=== PATIENT | female | born 1945 | race Caucasian/White ===

== ENCOUNTER 2020-04-30 23:58 | Emergency (ER) | payer MEDICARE, OTHER ==
[~2020-04-30] VITALS: Ht 152.4 cm; Wt 65.5 kg
[~2020-04-30 23:58] MED LIST: ASPI-1071 PO; BICTOZA SQ; LORA1TAB PO; ZES5T PO; ZOCOR PO
[2020-05-01 00:37] LABS: CLARITY,URINE CLEAR (Clear); COLOR,URINE YELLOW (Yellow); GLUCOSE, URINE >=1000 mg/dl (Neg); KETONES,URINE 15 mg/dl (Neg); LEUKOCYTE ESTERASE ,URINE NEGATIVE (Neg); NITRITES, URINE NEGATIVE (Neg); OCCULT BLOOD,URINE NEGATIVE (Neg); PROTEIN,URINE NEGATIVE (Neg); UROBILINOGEN,URINE 0.2 E.U/dL (0.2-1.0)
[2020-05-01 00:38] LABS: UA COLLECTION TYPE CLN CATCH MIDSTREAM
[2020-05-01 00:43] LABS: BACTERIA,URINE FEW /HPF (Neg); RBC,URINE NONE SEEN /HPF (0-2); SQUAMOUS EPITHELIAL CELL,UR FEW /LPF (FEW)
[2020-05-01 01:05] LABS: BASOPHILS # (AUTO) 0.1 X10'3 (0-0.2); BASOPHILS % (AUTO) 0.7 % (0-1); EOSINOPHILS % (AUTO) 0.3 % (0-6); HEMATOCRIT 38.6 % (35.0-45.0); HEMOGLOBIN 13.1 g/dl (12.0-16.0); LYMPHOCYTES # (AUTO) 1.5 X10'3 (1.1-4.8); LYMPHOCYTES % (AUTO) 17.7 % (21-51); MEAN CORPUSCULAR HEMOGLOBIN 31.5 PG (27.0-31.0); MEAN CORPUSCULAR HGB CONC 33.9 g/dL (33.0-36.5); MEAN CORPUSCULAR VOLUME 92.8 FL (78-98); MEAN PLATELET VOLUME 8.2 FL (7.4-10.4); MONOCYTES # (AUTO) 0.8 X10'3 (0-0.9); MONOCYTES % (AUTO) 8.9 % (2-12); NEUTROPHILS # (AUTO) 6.1 X10'3 (1.8-7.7); NEUTROPHILS % (AUTO) 72.4 % (42-75); PLATELET COUNT 247 X10'3 (140-440); RED BLOOD COUNT 4.15 X10'6 (4.20-5.60); RED CELL DISTRIBUTION WIDTH 14.4 % (11.5-14.5); WHITE BLOOD COUNT 8.5 X10'3 (4.5-11.0)
[2020-05-01 01:33] LABS: ALANINE AMINOTRANSFERASE 26 U/L (12-78); ALBUMIN 3.6 G/DL (3.4-5.0); ALBUMIN/GLOBULIN RATIO 0.8 (1.1-1.5); ALKALINE PHOSPHATASE 97 IU/L (46-116); AMYLASE 64 U/L (25-115); ANION GAP 11 (8-16); ASPARTATE AMINO TRANSFERASE 52 U/L (10-37); BILIRUBIN,TOTAL 0.6 MG/DL (0.1-1.0); BLOOD UREA NITROGEN 20 MG/DL (7-18); CALCIUM 9.9 MG/DL (8.5-10.1); CHLORIDE 98 MMOL/L (99-107); GLUCOSE 384 MG/DL (70-104); LIPASE 352 U/L (73-393); POTASSIUM 4.2 MMOL/L (3.5-5.1); SODIUM 135 MMOL/L (135-145); TOTAL CARBON DIOXIDE 26.4 MMOL/L (24-32); TOTAL PROTEIN 7.9 G/DL (6.4-8.2); eGFR 54 ML/MIN
[2020-05-01] MEDS ORDERED: ondansetron/PF 4mg/2ml inj IV STA (01:44)
[2020-05-01] MEDS ORDERED: morphine 4 MG/ML inj SYRINge IV STA (01:44)
--- NOTE | 2020-05-01 01:59 | NUR ---
PT OUT TO CT VIA STRETCHER, THE MORPHINE MADE HER A LITTLE LIGHT HEADED.
[2020-05-01] MEDS ORDERED: morphine 4 MG/ML inj SYRINge IV PRN (03:10)
--- NOTE | 2020-05-01 03:19 | NUR ---
PT STATES SHE IS GOING HOME, HAD THIS ON A CT 5 YEARS AGO AND THEY DIDN'T FIND ANYTHING.
[2020-05-01] MEDS ORDERED: HYDR-4353 PO (03:37)
[2020-05-01 03:55] VITALS: BP 146/88
== END 2020-05-01 03:57 | disposition home or self-care (01) ==
LOC: ER 23:58
DX: R10.31 Right lower quadrant pain (principal); R11.0 Nausea; E11.9 Type 2 diabetes mellitus without complications; Z98.890 Other specified postprocedural states; Z79.82 Long term (current) use of aspirin; Z79.899 Other long term (current) drug therapy
CPT/HCPCS: 36415; 74176; 80053; 81001; 82150; 83690; 85025; 86301; 87088; 96374; 96375; 96376; 99284; J2270; J2405

== ENCOUNTER 2020-06-09 13:01 | Outpatient (CLI) | payer MEDICARE, OTHER ==
[~2020-06-09 13:01] MED LIST changes: -ASPI-1071 PO; +ASPI-611 PO; -BICTOZA SQ; +DULO30CA52 PO; +GABA600T13 PO; +HYDR-3972 PO; +HYDR25TA4 PO; +INSU100V11 SQ; +LANTUS SQ; -LORA1TAB PO; +LOSA100T57 PO; +MELO-102 PO; +PANT40TA4 PO; +TRAM50TA2 PO; -ZES5T PO; -ZOCOR PO
== END 2020-06-09 23:59 | disposition home or self-care (01) ==
LOC: LAB 13:01
PROVIDERS: ATTEND Surgery
DX: Z01.818 Encounter for other preprocedural examination (principal); Z11.59 Encounter for screening for other viral diseases; D49.0 Neoplasm of unspecified behavior of digestive system
CPT/HCPCS: 87635; C9803

== ENCOUNTER 2021-01-14 11:30 | Outpatient (CLI) | payer MEDICARE, OTHER ==
[~2021-01-14 11:30] MED LIST changes: -ASPI-611 PO; +BUSP5TAB3 PO; +HYDR-3686 PO; -HYDR-3972 PO; -HYDR25TA4 PO; +INSU100V9 SQ; -LANTUS SQ; -MELO-102 PO; +METO5TAB98 PO; +OXYC-658 PO; -PANT40TA4 PO; +PANT40TA54 PO; +SIMV-42 PO; -TRAM50TA2 PO; +[UNRECOGNIZED DRUG - CODE] PO
[2021-01-14] MEDS ORDERED: diatr meglu/diatrizoate 30ml oral sol.-(3 dose) bottle PO SCH (21:00)
[2021-01-15] MEDS ORDERED: HYDR25TA4 PO (11:28)
[2021-01-15] MEDS ORDERED: ASPI-1397 PO (11:28)
[2021-01-15] MEDS ORDERED: MELO-102 PO (11:28)
[2021-01-15] MEDS ORDERED: INSU100C10 SQ (11:28)
[2021-01-15] MEDS ORDERED: LORA-268 PO (11:28)
[2021-01-15] MEDS ORDERED: DOCU-148 PO (11:28)
== END 2021-01-14 23:59 | disposition home or self-care (01) ==
LOC: LAB 11:30
PROVIDERS: ATTEND Surgery
DX: C25.9 Malignant neoplasm of pancreas, unspecified (principal); I10 Essential (primary) hypertension
CPT/HCPCS: 84478; Q9963